=== PATIENT | male | born 1970 | race Caucasian/White ===

== ENCOUNTER → 2018-08-13 09:07 | Outpatient (CLI) | payer OTHER, SELFPAY ==
--- NOTE | 2018-08-13 09:14 | US_ITS ---
US thyroid HISTORY: ITS.REASON: THYROMEGLY ORDERING PHYSICIAN: Cornell Babcock MD PATIENT AGE: 47 years Comparison: None FINDINGS: The right lobe is 4.1 x 1.3 x 1.7 cm. There is homogeneous echogenicity. No nodules apparent. The left lobe is 3.8 x 1.5 x 1.6 cm. Homogeneous echogenicity with no nodules. Unremarkable isthmus. IMPRESSION: Negative thyroid ultrasound
== END ==
PROVIDERS: Family Provider Family Medicine; PCP Family Medicine; Visit Provider Family Medicine
DX: E01.0 Iodine-deficiency related diffuse (endemic) goiter (principal)
CPT/HCPCS: 76536

== ENCOUNTER → 2020-10-05 07:42 | Outpatient (CLI) | payer OTHER, SELFPAY ==
--- NOTE | 2020-10-05 07:46 | US_ITS ---
PROCEDURE: US ABDOMEN LIMITED CLINICAL INDICATION: WEIGHT LOSS COMPARISON: No exams were available for comparison FINDINGS: PANCREAS: Unremarkable. No obvious mass or abnormal fluid collection. No ductal dilatation LIVER: No focal liver lesions demonstrated. Homogeneous echogenicity. No intrahepatic biliary ductal dilatation evident. There is appropriate direction of blood flow within a non dilated portal vein RIGHT KIDNEY: Unremarkable. Normal size and echogenicity. No hydronephrosis GALLBLADDER: No gallstones, gallbladder wall thickening, or pericholecystic fluid is evident. There is a small amount of sludge in the gallbladder and there is a small hyperechoic focus along long the anterior aspect of the gallbladder wall suggesting a small polyp. Common duct is normal at 3 mm. IMPRESSION: Mild amount of gallbladder sludge with a small polyp. No shadowing stones evident. Dictated by: Stuart Augustin MD 10/05/2020 16:53 Stuart Augustin MD in [place] 10/05/2020 16:53
== END ==
PROVIDERS: PCP Family Medicine; Visit Provider Family Medicine
DX: R63.4 Abnormal weight loss (principal)
CPT/HCPCS: 76705

== ENCOUNTER → 2021-01-03 18:12 | Outpatient (CLI) | payer OTHER, SELFPAY ==
[2021-01-03 19:09] LABS: Coronavirus 19 IgG Antibody Positive (Negative); Coronavirus 19 IgM Antibody Negative (Negative)
[2021-01-03 19:38] LABS: Vitamin B12 517 pg/mL (239-931)
[2021-01-10 22:06] LABS: 1,25 Dihydroxy Vitamin D 53 pg/mL (.); 1,25-Dihydroxy, Vitamin D-2 <10 pg/mL (.); 1,25-Dihydroxy, Vitamin D-3 53 pg/mL (.)
== END ==
PROVIDERS: Internal Medicine Gastroenterology; Visit Provider Nurse Practitioner Family
DX: Z01.812 Encounter for preprocedural laboratory examination (principal); Z20.822 Contact with and (suspected) exposure to COVID-19; Z86.16 Personal history of COVID-19; Z13.810 Encounter for screening for upper gastrointestinal disorder; Z12.11 Encounter for screening for malignant neoplasm of colon; R10.84 Generalized abdominal pain; R14.0 Abdominal distension (gaseous); R63.4 Abnormal weight loss; R19.7 Diarrhea, unspecified; R53.83 Other fatigue; K21.9 Gastro-esophageal reflux disease without esophagitis; F10.10 Alcohol abuse, uncomplicated
CPT/HCPCS: 36415; 82607; 82652; 86328

== ENCOUNTER 2021-01-05 06:39 | Day surgery (SDC) | payer OTHER, SELFPAY ==
[2020-12-28 14:38] VITALS: BMI 24.3
[2021-01-05] VITALS (7 sets, daily range): BP systolic 90–141; BP diastolic 54–86; PULSE 48–74; RESP 18; TEMP 36.2–36.3; O2SAT 97–100
--- NOTE | 2021-01-05 07:32 | P.PCN_ITS ---
[facility] Procedure Note Procedure Note:: Colonoscopy Procedure Report: Colonoscopy with cold snare polypectomy Endoscopist: Pritesh Flower II, MD Referring physician: Hernan Fowler MD Date of Procedure: January 05, 2021 Equipment: Olympus 180 variable stiffness pediatric colonoscope Sedation: MAC sedation Indication: Mr. Sexton is a 50-year-old gentleman who is here for diagnostic upper endoscopy and colonoscopy. He presents with a change in bowel habits and worsening abdominal pain. He reports primarily right sided and right lower qu adrant abdominal pain. He has had this for 3 to 4 months. He also has been losing weight unintentionally and has lost at least 20 pounds over the last 3 months. His bowel movements have been looser with diarrhea on most days. He reports no constipation. He will have multiple bowel movements and sometimes have incomplete defecation. He has had an increase in bloating, gassiness, belching, heartburn and reflux. He also has some early satiety. His right upper quadrant abdominal ultrasound showed some sludge and a polyp in the gallbladder but no other abnormalities. He has lost his appetite. He reports drinking up to 2 gallons of milk per week. He also had been drinking 3-4 beers nightly. He used to drink more heavily and used whiskey several years ago. He reports no melena or hematochezia. Procedure: Prior to the procedure, a history and physical exam was performed, and patient's medications and allergies were reviewed. The risks, benefits and alternatives of the sedation and procedure were discussed with the patient. All questions were answered and informed consent was obtained. The patient was brought to the procedure room. Patient identification and proposed procedure were verified by the physician and the nurse. The patient was placed in a left lateral decubitus position and the scope was passed under direct vision. Throughout the procedure, the patient's blood pressure, pulse, and oxygen saturations were monitored continuously. The colonoscopy was accomplished without difficulty. The patient tolerated the procedure well. Findings: On digital rectal examination there was normal rectal tone. There were no external hemorrhoids. The prostate was 2+, smooth, soft, symmetric without nodules. The colonoscope was introduced through the anal canal to the rectum and advanced to the cecum. The ileocecal valve and appendiceal orifice were identified. The scope was advanced a short distance into the ileum which appeared grossly normal. The scope was then withdrawn into the colon. There were 3 colon polyps (ascending x1 (4 mm) and descending x2 (4 and 6 mm)) which were all 3 removed via cold snare polypectomy. The remainder of the cecum, ascending, transverse, descending, sigmoid and rectum were normal. There were no other mucosal abnormalities. Upon retroflexion within the rectum there were grade 1 internal hemorrhoids.The preparation was excellent throughout with [place] Preparation Score of 9. The cecal time was 12 minutes. Impression: 1. Diminutive colonic polyps x3 2. Grade 1 internal hemorrhoids Plan: I will follow up the polyp pathology and recommend repeat colonoscopy again in 5 years based upon the polyp histology. I would encourage dietary measures, bulk fiber supplementation and probiotic on a long-term daily maintenance basis.
--- NOTE | 2021-01-05 07:33 | HMH.ANESCL ---
[facility] Anesthesia Checklist - Patient Identification Patient Identification: Arm Band - Structural Data Admitted From: Home Planned Operative Procedure/s: egd/colonoscopy Consent for Planned Operative Procedure(s) Verified: Yes Verified Documents: Surgical Consent, History and Physical - NPO Status Verified Time NPO: 00:00 - Additional verifications Anesthesia Reactions: No - Airway Assessment C-Spine Mobility Assessed: Yes (mp2) TMJ Mobility Assessed: Yes Dentition: Good Dentition - Neurological Assessment Level of Consciousness: Awake, Alert - Anesthesia Plan Anesthesia Risk discussed: Yes Anesthesia Plan: Verified ASA Class: II Anesthesia Type: MAC [facility] History I have reviewed the patient's past medical history: Yes Medical History: Reports:: Hyperlipidemia, Hypertension Denies:: Cancer, Diabetes Mellitus Type 1, Diabetes Mellitus Type 2, Internal Pacemaker, MRSA, Seizures *Have you ever received a pneumonia vaccine?: No *Have you received a flu vaccine this season?: No Anesthesia experience/problems:: nac Other Surgeries: Yes: No Previous Surgery. No: Pacemaker Amputation: No Fractures: No - *Social History Smoking Status: Current every day smoker Tobacco Type: smokeless tobacco # Packs/Day (cigarettes): 1 Alcohol Intake: never Substance Use Type: denies use *Occupational Status:: employed Housing: house *Travel in the last 8 weeks: None Family Hx:: No significant family history
--- NOTE | 2021-01-05 07:40 | HMH.PROC ---
[facility] [place] Procedure Note Procedure Note:: Upper Endoscopy Procedure Report: Esophagogastroduodenoscopy with cold biopsies Endoscopost: Pritesh Flower II, MD Referring Physician: Qamar Fowler MD Date of Procedure: January 05, 2021 Equipment: Olympus GIF 180 standard upper endoscope Sedation: MAC sedation Indications: Mr. Sexton is a 50-year-old gentleman who is here for diagnostic upper endoscopy and colonoscopy. He presents with a change in bowel habits and worsening abdominal pain. He reports primarily right sided and right lower quadrant abdominal pain. He has had this for 3 to 4 months. He also has been losing weight unintentionally and has lost at least 20 pounds over the last 3 months. His bowel movements have been looser with diarrhea on most days. He reports no constipation. He will have multiple bowel movements and sometimes have incomplete defecation. He has had an increase in bloating, gassiness, belching, heartburn and reflux. He also has some early satiety. His right upper quadrant abdominal ultrasound showed some sludge and a polyp in the gallbladder but no other abnormalities. He has lost his appetite. He reports drinking up to 2 gallons of milk per week. He also had been drinking 3-4 beers nightly. He used to drink more heavily and used whiskey several years ago. He reports no melena or hematochezia. Procedure: Prior to the procedure, a history and physical exam was performed, and patient's medications and allergies were reviewed. The risks, benefits and alternatives of the sedation and procedure were discussed with the patient. All questions were answered and informed consent was obtained. The patient was brought to the procedure room. Patient identification and proposed procedure were verified by the physician and the nurse. The patient was placed in a left lateral decubitus position and the scope was passed under direct vision. Throughout the procedure, the patient's blood pressure, pulse, and oxygen saturations were monitored continuously. The upper GI endoscopy was accomplished without difficulty. The patient tolerated the procedure well. Findings: The scope was passed directly into the upper esophagus and advanced to the third portion of the duodenum. The post bulbar duodenum and duodenal bulb were normal with normal mucosa and conniventes. Cold biopsies were taken from the post bulbar duodenum to rule out celiac disease. The scope was withdrawn through a normal duodenal bulb and pylorus into the stomach. There was very minimal linear reactive gastropathy. There was mild chronic gastritis. Upon retroflexion there was no hiatal hernia. 2 biopsies were taken in the antrum and along the lesser curvature for histology to rule out gastritis and/or H pylori. The scope was then withdrawn into the esophagus. There was a serrated Z-line but no evidence of reflux esophagitis or Arredondo's. There were no esophageal varices. The remainder of the esophageal mucosa was normal. Impression: 1. Nonerosive GERD 2. Very mild chronic gastritis, minimal reactive gastropathy Plan: I will follow-up the biopsies. I did not see any clear source for the patient's abdominal pain, anorexia and weight loss. This certainly may be functional in origin. I will proceed with diagnostic colonoscopy.
== END 2021-01-05 09:00 | disposition home or self-care (01) ==
LOC: OUTP 06:43
PROVIDERS: PCP Family Medicine; Visit Provider Internal Medicine Gastroenterology
PROC: 0DJ08ZZ Inspection of Upper Intestinal Tract, Via Natural or Artificial Opening Endoscopic (ICD-10-PCS; CPT 43235; principal; 2021-01-05 07:30)
DX: K21.9 Gastro-esophageal reflux disease without esophagitis (principal); K31.9 Disease of stomach and duodenum, unspecified; K29.70 Gastritis, unspecified, without bleeding; K63.5 Polyp of colon; K64.0 First degree hemorrhoids; R63.4 Abnormal weight loss; Z68.24 Body mass index [BMI] 24.0-24.9, adult; E78.5 Hyperlipidemia, unspecified; I10 Essential (primary) hypertension; Z72.0 Tobacco use; Z79.82 Long term (current) use of aspirin; Z79.899 Other long term (current) drug therapy
CPT/HCPCS: 43239; 45380

== ENCOUNTER 2021-05-16 11:52 | Emergency (ER) | payer OTHER, SELFPAY ==
[2021-05-16 12:01] VITALS: BP 141/88; PULSE 68; RESP 18; TEMP 36.8; O2SAT 98; BMI 24.5
[2021-05-16 12:20] VITALS: BP 141/88; PULSE 68; RESP 14; TEMP 36.9; O2SAT 98; BMI 24.4
--- NOTE | 2021-05-16 12:23 | HMH.EDUTC ---
[facility] [place] Impression: Low back pain Qualifiers: Chronicity: unspecified Back pain laterality: unspecified Sciatica presence: unspecified whether sciatica present Qualified Code(s): M54.5 - Low back pain Disposition: Home, Self-Care Condition on Discharge: Good Instructions: Low Back Pain, DI for Low Back Pain, DI for Chronic Pain -- Adult, Cyclobenzaprine, Etodolac Additional Instructions: *Etodolac every 8 hours with meal as needed for pain/inflammation *Not additional anti-inflammatory like Ibuprofen motrin, aleve, advil with the above amount of Etodolac. You can still take Tylenol every 4 hours as needed if you need something else for pain *Ice 20 minutes every 2 hours for the first 48 hours after the initial injury followed by moist heat every 20 minutes 3-4 times a day to affected area *Muscle relaxer every 8 hours as needed for muscle spasms but remember, it WILL cause drowsiness You cannot take it and drive, operate machinery or care for small children. *Keep this area active, no movement leads to more stiffness, However take it easy and avoid heavy lifting pushing or pulling *Follow up with you family doctor if no improvement for further treatment Return if needed Straight to ER if any life threatening symptoms or loss of control of bowel or bladder Start oral Medrol dose pack tomorrow on 05/17/21 Prescriptions: Etodolac 200 mg PO Q8HP PRN #15 cap PRN Reason: Moderate Pain Transmission Status: Received by [facility] Cyclobenzaprine HCl [Flexeril 10mg tablet] 10 mg PO TID PRN #15 tab PRN Reason: Muscle Spasm Transmission Status: Received by [facility] methylPREDNISolone [Medrol 4mg tab] 4 mg PO DIRECTED #21 tab Transmission Status: Received by [facility] Referrals: Cornell Babcock MD [Primary Care Provider] - As needed Forms: Work/School Release Time of Disposition: 12:53 Medical Decision Making - Roe Inquiry Pt receiving controlled substance: No Roe was queried for this patient: No Vital Signs: 05/16/21 12:01 05/16/21 12:20 Temperature 98.2 F 98.5 F Temperature Source Oral Oral Pulse Rate [Right] 68 68 Respiratory Rate 18 14 Blood Pressure [Right Arm] 141/88 H 141/88 H Blood Pressure Mean [Right Arm] 105 105 02 Sat by Pulse Oximetry 98 98 Oxygen Delivery Method Room Air Orders (Tests/Meds): ED MEDICATIONS Discontinued Medications Generic Name Dose Route Start Last Admin Trade Name Jeison PRN Reason Stop Dose Admin Methylprednisolone Sodium Succinate 125 mg 05/16/21 12:42 05/16/21 12:46 Methylprednisolone Sod Succ 125mg Vial IM 05/16/21 12:43 125 mg ONCE ONE Administration Medical Decision Narrative: Discussed xray and patient denies falling and declined at this time reports feels like spasms Medication discussed with pharmacy [facility] [place] - General Stated complaint: ao 05/13 injury to back Time Seen by Provider: 05/16/21 12:23 Mode of Arrival: Family Vehicle Source of Information: Patient Limitations: No Limitations Description of Symptoms (Recalled from Triage Doc. by RN): Patient c/o lower back pain since 05/13/21. Pt reports he was tilling his garden when the back pain began. Pt reports hx of chronic back pain. Pt ambulatory in ED triage. - History of Present Illness Provider Complaint: Patient state that he was tilling his garden a few days ago and it was jarring him and then he hit a metal stake and it jammed him up State that he has previous back problems in the past and felt his back spasm up States that ever since he has been having muscle spasm like pain in his lower back area that radiates into both buttock area and upper legs Denies loss of control of bowel or bladder - Related Data Home Medications Medication Instructions Recorded Confirmed Aspirin 81 mg PO DAILY 12/28/20 01/05/21 Atorvastatin Calcium [Lipitor 40mg 40 mg PO HS 12/28/20 01/05/21 Tab] Losartan/Hydrochloroth
[2021-05-16 13:15] VITALS: BP 141/88; PULSE 68; RESP 18; TEMP 36.6
== END 2021-05-16 13:15 | disposition home or self-care (01) ==
PROVIDERS: Emergency Provider Nurse Practitioner; PCP Family Medicine
DX: M54.5 Low back pain (principal); M62.830 Muscle spasm of back; X50.0XXA Overexertion from strenuous movement or load, initial encounter; Y92.018 Other place in single-family (private) house as the place of occurrence of the external cause; I10 Essential (primary) hypertension; E78.5 Hyperlipidemia, unspecified; F17.290 Nicotine dependence, other tobacco product, uncomplicated
CPT/HCPCS: 96372; 99202; G0463

== ENCOUNTER → 2023-04-21 09:17 | Outpatient (CLI) | payer OTHER, SELFPAY ==
[2023-04-21 18:44] LABS: Basophils % 0.4 % (0.1-2.0); Eosinophils # 0.3 K/mm3 (0.0-0.4); Eosinophils % 5.4 % (0.1-12.0); Hematocrit 46.6 % (42.0-52.0); Hemoglobin 15.3 g/dL (14.1-18.0); Lymphocytes # 1.8 K/mm3 (0.7-4.5); Lymphocytes % 31.1 % (10-50); Mean Corpuscular HGB Conc 32.9 g/dL (31.8-35.4); Mean Corpuscular Hemoglobin 30.9 pg (27.0-31.2); Mean Corpuscular Volume 93.9 fl (80-94); Monocytes # 0.4 K/mm3 (0.1-1.0); Monocytes % 7.7 % (1.7-9.3); Neutrophils # 3.2 K/mm3 (1.8-7.8); Neutrophils % 55.4 % (37.0-80.0); Platelet Count 322 K/mm3 (142-424); Red Blood Count 4.96 M/mm3 (4.60-6.20); Red Cell Distribution Width 12.8 % (11.5-17.5); White Blood Count 5.8 K/mm3 (4.8-10.8)
[2023-04-21 19:21] LABS: Alanine Aminotransferase 47 U/L (12-78); Albumin Level 4.5 g/dl (3.5-5.0); Albumin/Globulin Ratio 1.7 (1.1-1.8); Alkaline Phosphatase 75 U/L (38-126); Anion Gap 19.7 mEq/L (5-15); Aspartate Amino Transferase 43 U/L (17-59); Bilirubin,Total 0.5 mg/dl (0.2-1.3); Blood Urea Nitrogen 16 mg/dl (9-20); Calcium 9.3 mg/dl (8.4-10.2); Carbon Dioxide 26 mmol/L (22.0-30.0); Chloride 99 mmol/L (98-107); Chol/HDL Ratio 4.1 (1-3.5); Cholesterol 238 mg/dl (140-200); Estimated Glomerular Filt Rate 102 ml/min (>60); GFR (African American) 123 ML/MIN (>60); Globulin 2.7 g/dL (1.3-3.2); Glucose 102 mg/dl (74-100); HDL Cholesterol 58 mg/dl (40-60); Potassium 4.7 mmoL/L (3.5-5.1); Sodium 140 mmol/L (136-145); Total Protein,Serum 7.2 g/dl (6.3-8.2); Triglycerides 183 mg/dl (30-150); VLDL Cholesterol 37 mg/dL (0-40)
[2023-04-21 19:27] LABS: Hemoglobin A1C 5.3 % (4.0-6.0)
[2023-04-21 19:33] LABS: Direct LDL Cholesterol 139.41 mg/dL (100-129)
[2023-04-21 19:35] LABS: Creatinine,Urine Random 150 mg/dL (Not Estab.)
[2023-04-21 19:38] LABS: Microalbumin/Creatinine Ratio 55.5
[2023-04-21 19:39] LABS: 25-OH Vitamin D, Total 42.9 ng/mL (30-100)
[2023-04-21 19:52] LABS: Prostate Specific Ag Screen 1.3 ng/ml (0.0-4.0); Thyroid Stimulating Hormone 0.69 uIU/mL (0.465-4.68)
[2023-04-21 20:11] LABS: Vitamin B12 235 pg/mL (239-931)
== END ==
PROVIDERS: PCP Nurse Practitioner; Visit Provider Nurse Practitioner
DX: Z00.00 Encounter for general adult medical examination without abnormal findings (principal); E78.5 Hyperlipidemia, unspecified; I10 Essential (primary) hypertension; K21.9 Gastro-esophageal reflux disease without esophagitis; Z12.5 Encounter for screening for malignant neoplasm of prostate
CPT/HCPCS: 80053; 80061; 82043; 82306; 82570; 82607; 83036; 84443; 85025; 87086; G0103

== ENCOUNTER → 2023-10-14 09:47 | Outpatient (CLI) | payer OTHER, SELFPAY ==
[2023-10-14 18:35] LABS: Basophils # 0.1 K/mm3 (0-0.2); Eosinophils # 0.3 K/mm3 (0.0-0.4); Eosinophils % 4.8 % (0.1-12.0); Hematocrit 45.1 % (42.0-52.0); Hemoglobin 15.5 g/dL (14.1-18.0); Lymphocytes # 2.5 K/mm3 (0.7-4.5); Lymphocytes % 38.7 % (10-50); Mean Corpuscular HGB Conc 34.4 g/dL (31.8-35.4); Mean Corpuscular Hemoglobin 31.5 pg (27.0-31.2); Mean Corpuscular Volume 91.5 fl (80-94); Mean Platelet Volume 8.6 fl (7.4-10.4); Monocytes # 0.6 K/mm3 (0.1-1.0); Monocytes % 8.6 % (1.7-9.3); Neutrophils % 46.9 % (37.0-80.0); Platelet Count 278 K/mm3 (142-424); Red Blood Count 4.93 M/mm3 (4.60-6.20); Red Cell Distribution Width 12.4 % (11.5-17.5); White Blood Count 6.5 K/mm3 (4.8-10.8)
[2023-10-14 18:38] LABS: Alanine Aminotransferase 37 U/L (12-78); Albumin Level 4.7 g/dl (3.5-5.0); Albumin/Globulin Ratio 1.5 (1.1-1.8); Alkaline Phosphatase 68 U/L (38-126); Anion Gap 14.3 mEq/L (5-15); Aspartate Amino Transferase 39 U/L (17-59); Bilirubin,Total 0.5 mg/dl (0.2-1.3); Blood Urea Nitrogen 13 mg/dl (9-20); Calcium 9.5 mg/dl (8.4-10.2); Carbon Dioxide 30 mmol/L (22.0-30.0); Chloride 99 mmol/L (98-107); Chol/HDL Ratio 2.8 (1-3.5); Cholesterol 202 mg/dl (140-200); Estimated Glomerular Filt Rate 79 ml/min (>60); GFR (African American) 95 ML/MIN (>60); Globulin 3.1 g/dL (1.3-3.2); Glucose 97 mg/dl (74-100); HDL Cholesterol 72 mg/dl (40-60); Potassium 4.3 mmoL/L (3.5-5.1); Sodium 139 mmol/L (136-145); Total Protein,Serum 7.8 g/dl (6.3-8.2); Triglycerides 134 mg/dl (30-150); VLDL Cholesterol 27 mg/dL (0-40)
[2023-10-14 18:49] LABS: Direct LDL Cholesterol 104.14 mg/dL (100-129)
[2023-10-14 18:55] LABS: 25-OH Vitamin D, Total 40.5 ng/mL (30-100)
[2023-10-14 19:08] LABS: Erythrocyte Sedimentation Rate 2 mm/hr (0-20); Thyroid Stimulating Hormone 1.15 uIU/mL (0.465-4.68)
[2023-10-14 19:23] LABS: Hemoglobin A1C 5.4 % (4.0-6.0)
[2023-10-14 19:27] LABS: Vitamin B12 393 pg/mL (239-931)
[2023-10-16 09:30] LABS: Testosterone,Total 448 ng/dL (264-916)
== END ==
LOC: LAB.DROPOF 10-15 09:48
PROVIDERS: PCP Nurse Practitioner; Visit Provider Nurse Practitioner
DX: E53.8 Deficiency of other specified B group vitamins (principal); E78.5 Hyperlipidemia, unspecified; I10 Essential (primary) hypertension; R53.83 Other fatigue; Z68.24 Body mass index [BMI] 24.0-24.9, adult; Z72.0 Tobacco use
CPT/HCPCS: 80053; 80061; 82306; 82607; 83036; 84403; 84443; 85025; 85651

== ENCOUNTER → 2023-11-26 10:38 | Outpatient (CLI) | payer OTHER, SELFPAY | LOC: SL 10:39 | PROVIDERS: PCP Nurse Practitioner; Visit Provider Nurse Practitioner | DX: R40.0 Somnolence (principal); G47.33 Obstructive sleep apnea (adult) (pediatric); G47.36 Sleep related hypoventilation in conditions classified elsewhere | CPT/HCPCS: 95806 ==

== ENCOUNTER 2024-05-20 11:04 | Outpatient (CLI) | payer OTHER, SELFPAY ==
[2024-05-20 19:22] LABS: Creatinine,Urine Random 131 mg/dL (Not Estab.); Microalbumin/Creatinine Ratio 54.6
[2024-05-20 20:03] LABS: Alanine Aminotransferase 44 U/L (12-78); Albumin Level 4.7 g/dl (3.5-5.0); Albumin/Globulin Ratio 1.7 (1.1-1.8); Alkaline Phosphatase 70 U/L (38-126); Anion Gap 17.9 mEq/L (5-15); Aspartate Amino Transferase 35 U/L (17-59); Bilirubin,Total 0.6 mg/dl (0.2-1.3); Blood Urea Nitrogen 25 mg/dl (9-20); Calcium 9.6 mg/dl (8.4-10.2); Carbon Dioxide 27 mmol/L (22.0-30.0); Chloride 100 mmol/L (98-107); Chol/HDL Ratio 3.4 (1-3.5); Cholesterol 189 mg/dl (140-200); Estimated Glomerular Filt Rate 49 ml/min (>60); GFR (African American) 59 ML/MIN (>60); Globulin 2.8 g/dL (1.3-3.2); Glucose 99 mg/dl (74-100); HDL Cholesterol 56 mg/dl (40-60); Potassium 3.9 mmoL/L (3.5-5.1); Sodium 141 mmol/L (136-145); Total Protein,Serum 7.5 g/dl (6.3-8.2); Triglycerides 166 mg/dl (30-150); VLDL Cholesterol 33 mg/dL (0-40)
[2024-05-20 20:14] LABS: Direct LDL Cholesterol 93.62 mg/dL (100-129)
[2024-05-20 20:33] LABS: Prostate Specific Ag Screen 1.4 ng/ml (0.0-4.0)
== END 2024-05-20 23:59 | disposition home or self-care (01) ==
LOC: LAB.DROPOF 05-21 11:04
PROVIDERS: PCP Nurse Practitioner; Visit Provider Nurse Practitioner
DX: I10 Essential (primary) hypertension (principal); E78.5 Hyperlipidemia, unspecified; Z12.5 Encounter for screening for malignant neoplasm of prostate
CPT/HCPCS: 80053; 80061; 82043; 82570; G0103

== ENCOUNTER 2025-03-22 16:29 | Outpatient (CLI) | payer OTHER, SELFPAY ==
[2025-03-22 18:47] LABS: Basophils # 0.1 K/mm3 (0-0.2); Basophils % 0.8 % (0.1-2.0); Eosinophils # 0.1 Kmm3 (0.0-0.4); Eosinophils % 1.2 % (0.1-12.0); Hematocrit 42.2 % (42.0-52.0); Hemoglobin 14.5 g/dL (14.1-18.0); Lymphocytes # 2.6 K/mm3 (0.7-4.5); Lymphocytes % 34.2 % (10-50); Mean Corpuscular HGB Conc 34.4 g/dL (31.8-35.4); Mean Corpuscular Hemoglobin 30.7 pg (27.0-31.2); Mean Corpuscular Volume 89.2 fl (80-94); Mean Platelet Volume 9.8 fl (7.4-10.4); Monocytes # 0.7 K/mm3 (0.1-1.0); Monocytes % 9.2 % (1.7-9.3); Neutrophils # 4.2 K/mm3 (1.8-7.8); Neutrophils % 54.5 % (37.0-80.0); Nucleated Red Blood Cells # 0 10^3/uL; Nucleated Red Blood Cells % 0 %; Platelet Count 357 K/mm3 (142-424); Red Blood Count 4.73 M/mm3 (4.60-6.20); Red Cell Distribution Width 12.8 % (11.5-17.5); Red Cell Distribution Width-SD 42.2 fL; White Blood Count 7.7 K/mm3 (4.8-10.8)
[2025-03-22 21:18] LABS: Alanine Aminotransferase 50 U/L (12-78); Albumin Level 4.6 g/dl (3.5-5.0); Albumin/Globulin Ratio 1.5 (1.1-1.8); Alkaline Phosphatase 74 U/L (38-126); Anion Gap 11.5 mEq/L (5-15); Aspartate Amino Transferase 33 U/L (17-59); Bilirubin,Total 0.8 mg/dl (0.2-1.3); Calcium 9.3 mg/dl (8.4-10.2); Carbon Dioxide 28 mmol/L (22.0-30.0); Chloride 105 mmol/L (98-107); Chol/HDL Ratio 3.3 (1-3.5); Cholesterol 197 mg/dl (140-200); Globulin 3.1 g/dL (1.3-3.2); Glucose 92 mg/dl (74-100); HDL Cholesterol 59 mg/dl (40-60); Potassium 4.5 mmoL/L (3.5-5.1); Sodium 140 mmol/L (136-145); Total Protein,Serum 7.7 g/dl (6.3-8.2); Triglycerides 159 mg/dl (30-150); VLDL Cholesterol 32 mg/dL (0-40)
[2025-03-22 21:22] LABS: Blood Urea Nitrogen 15 mg/dl (9-20); Estimated Glomerular Filt Rate 70 ml/min (>60); GFR (African American) 85 ML/MIN (>60)
[2025-03-22 21:29] LABS: Direct LDL Cholesterol 100.49 mg/dL (100-129)
[2025-03-22 21:31] LABS: Creatinine,Urine Random 162 mg/dL (Not Estab.)
[2025-03-22 21:36] LABS: Microalbumin/Creatinine Ratio 23.3
[2025-03-22 21:49] LABS: Thyroid Stimulating Hormone 1.76 uIU/mL (0.465-4.68)
[2025-03-22 22:08] LABS: Vitamin B12 281 pg/mL (239-931)
[2025-03-22 23:09] LABS: Hemoglobin A1C 5.1 % (4.0-6.0)
[2025-03-24 04:08] LABS: Testosterone,Total 348 ng/dL (264-916)
== END 2025-03-22 23:59 | disposition home or self-care (01) ==
LOC: LAB.DROPOF 03-23 09:57
PROVIDERS: PCP Nurse Practitioner; Visit Provider Nurse Practitioner
DX: E78.5 Hyperlipidemia, unspecified (principal); I10 Essential (primary) hypertension; E53.8 Deficiency of other specified B group vitamins; K21.9 Gastro-esophageal reflux disease without esophagitis; R53.83 Other fatigue
CPT/HCPCS: 80053; 80061; 82043; 82306; 82570; 82607; 83036; 84403; 84443; 85025